=== PATIENT | female | born 2000 | race Two or more races ===

== ENCOUNTER 2023-11-23 06:59 | Emergency (ER) | payer OTHER ==
[~2023-11-23] VITALS: Ht 167.6 cm; Wt 96.6 kg
[2023-11-23 07:41] VITALS: BP 128/88; RESP 18; O2SAT 95
[2023-11-23] MEDS ORDERED: cefTRIAXone SOD 1,000 MG VL IM ONE (08:00)
[2023-11-23] MEDS ORDERED: IBUP-1454 PO (08:04)
[2023-11-23] MEDS ORDERED: CEPH500C PO (08:04)
[2023-11-23] MEDS ORDERED: ACETAMINOPHEN 500 MG TAB PO ONE (08:15)
[2023-11-23] MEDS ORDERED: PROM1SOL4 PO (08:18)
[2023-11-23 08:29] VITALS: PULSE 100; TEMP 99.8
== END 2023-11-23 08:30 | disposition home or self-care (01) ==
LOC: ER 06:59
DX: J03.90 Acute tonsillitis, unspecified (principal)
CPT/HCPCS: 71045; 96372; 99283; J0696

== ENCOUNTER 2024-11-22 20:53 | Emergency (ER) | payer OTHER ==
[~2024-11-22] VITALS: Ht 167.6 cm; Wt 106.5 kg
[~2024-11-22 20:53] MED LIST: CEPH500C PO; IBUP-1454 PO; PROM1SOL4 PO
--- NOTE | 2024-11-22 21:13 | ED.PDOC ---
History of Present Illness HPI Comments 24-year-old female came to ER for pelvic pain. Patient states for the past 3 days she has been having intermittent episodes of aching suprapubic/lower abdominal/pelvic pain. Denies any nausea or vomiting. Denies any vaginal bleeding. Or discharge. Denies any urinary symptoms. Chief Complaint: Pelvic pain Time Seen by MD: 21:13 Primary Care Provider: NONE Reviewed Notes: Nurses Notes Allergies: Coded Allergies: NO KNOWN ALLERGIES (Unverified , 11/23/23) Home Meds Active Scripts Promethazine-Dm (Promethazine Dm 6.25-15 mg/5Ml) 1 Maeve Maeve, 5 ML PO TID, #150 ML Prov:JOSE MANUEL JOEL 11/23/23 Ibuprofen (Ibuprofen) 600 Mg Tab, 1 TAB PO QID, #30 TAB Prov:JOSE MANUEL JOEL 11/23/23 Cephalexin Monohydrate (Cephalexin) 500 Mg Cap, 2 CAP PO QID, #28 CAP Prov:JOSE MANUEL JOEL 11/23/23 Information Source: Patient Mode of Arrival: Ambulatory Severity: Moderate Timing: Days Duration: Intermittent Prehospital treatment: None Past Medical History PAST MEDICAL HISTORY: Denies Surgical History: Denies all surgeries BEHAVIOR INTERVENTIONIST History: No Pertinent BEHAVIOR INTERVENTIONIST History Family History Family History: Reviewed,noncontributory to illness Social History Smoker: Non-Smoker Alcohol: Denies ETOH Use Drugs: Denies Drug Use Lives In: Home Constitutional: denies: chills, diaphoresis, fatigue, fever, malaise, sweats, weakness, others EENTM: denies: blurred vision, double vision, ear bleeding, ear discharge, ear drainage, ear pain, ear ringing, eye pain, eye redness, hearing loss, mouth pain, mouth swelling, nasal discharge, nose bleeding, nose congestion, nose pain, photophobia, tearing, throat pain, throat swelling, voice changes, others Respiratory: denies: cough, hemoptysis, orthopnea, SOB at rest, shortness of breath, SOB with excertion, stridor, wheezing, others Cardiovascular: denies: chest pain, dizzy spells, diaphoresis, Dyspnea on exertion, edema, irregular heart beat, left arm pain, lightheadedness, palpitations, PND, syncope, others Gastrointestinal: denies: abdomen distended, abdominal pain, blood streaked bowels, constipated, diarrhea, dysphagia, difficulty swallowing, hematemesis, melena, nausea, poor appetite, poor fluid intake, rectal bleeding, rectal pain, vomiting, others Genitourinary: reports: pain (Pelvic); denies: abnormal vagina bleeding, burning, dyspareunia, dysuria, flank pain, frequency, hematuria, incontinence, , vagina discharge, urgency, others Neurological: denies: dizziness, fainting, headache, left sided numbness, left sided weakness, numbness, paresthesia, pre-existing deficit, right sided numbness, right sided weakness, seizure, speech problems, tingling, tremors, weakness, others Musculoskeletal: denies: back pain, gout, joint pain, joint swelling, muscle pain, muscle stiffness, neck pain, others Integumetry: denies: bruises, change in color, change in hair/nails, dryness, laceration, lesions, lumps, rash, wounds, others Allergic/Immunocompromised: denies: Difficulty Healing, Frequent Infections, Hives, Itching, others Hematologic/Lymphatic: denies: anemia, blood clots, easy bleeding, easy bruising, swollen glands, others Endocrine: denies: excessive hunger, excessive sweating, excessive thirst, excessive urination, flushing, intolerance to cold, intolerance to heat, unexplained weight gain, unexplained weight loss, others Psychiatric: denies: anxiety, bipolar disorder, depression, hopeless, panic disorder, schizophrenia, sleepless, suicidal, others Physical Exam General Appearance: Moderate Distress (Moderate distress due to pelvic pain. Patient declined any pain medication while at the facility.), Obese HEENT: Normal ENT Inspection, Pharynx Normal, TMs Normal Neck: Full Range of Motion, Non-Tender, Normal, Normal Inspection Respiratory: Chest Non-Tender, Lungs Clear, No Accessory Muscle Use, No Respiratory Distress, Normal Breath Sounds Cardiovascular: No Edema, No JVD, No Murmur, No Gallop, Normal Peripheral Pulses, Regular Rate/Rhythm Breast Exam: Deferred Gastrointestinal: No Organomegaly, Non Tender, No Pulsatile Mass, Normal Bowel Sounds, Soft Genitalia: Deferred Pelvic: Deferred Rectal: Deferred Extremities: No calf tenderness, Normal capillary refill, Normal inspection, Normal range of motion, Non-tender, No pedal edema Musculoskeletal : Apperance: Normal Neurologic: Alert, No Motor Deficits, Normal Affect, Normal Mood, No Sensory Deficits Cerebellar Function: Normal Reflexes: Normal Skin: Dry, Normal Color, Warm Lymphatic: No Adenopathy Was a procedure done? Was a procedure done?: No Differential Dx Considerations may include: Urinary tract infection, ovarian cyst, fibroids, kidney stones X-Ray, Labs, Meds, VS Vital Signs Date Time Temp Pulse Resp B/P (MAP) Pulse Ox O2 Delivery O2 Flow Rate FiO2 11/22/24 21:11 98.4 94 18 147/101 (116) 96 Lab Test 11/22/24 21:24 11/22/24 00:00 Range/Units White Blood Count 9.2 4.4-10.8 10^3/uL Red Blood Count 4.73 4.0-5.20 10^6/uL Hemoglobin 15.0 12.2-16.2 g/dL Hematocrit 43.6 36.0-46.0 % Mean Corpuscular Volume 92.1 80.0-100.0 fL Mean Corpuscular Hemoglobin 31.7 28.0-32.0 pg Mean Corpuscular Hemoglobin Concent 34.4 32.0-36.0 g/dL Red Cell Distribution Width 13.5 11.8-14.3 % Platelet Count 277 140-450 10^3/uL Mean Platelet Volume 9.1 6.9-10.8 fL Neutrophils (%) (Auto) 60.6 37.0-80.0 % Lymphocytes (%) (Auto) 26.4 10.0-50.0 % Monocytes (%) (Auto) 10.1 0.0-12.0 % Eosinophils (%) (Auto) 1.7 0.0-7.0 % Basophils (%) (Auto) 1.2 0.0-2.0 % Neutrophils # (Auto) 5.6 1.6-8.6 10 ^3/uL Lymphocytes # (Auto) 2.4 0.4-5.4 10 ^3/uL Monocytes # (Auto) 0.9 0-1.3 10 ^3/uL Eosinophils # (Auto) 0.2 0-0.8 10 ^3/uL Basophils # (Auto) 0.1 0-0.2 10 ^3/uL Nucleated Red Blood Cells 0.1 % Sodium Level 140 136-145 mmol/L Potassium Level 4.0 3.5-5.1 mmol/L Chloride Level 106 98-107 mmol/L Carbon Dioxide Level 26 20-31 mmol/L Anion Gap 8 5-15 Blood Urea Nitrogen 7 L 9-23 mg/dL Creatinine 1.04 H 0.550-1.02 mg/dL Glomerular Filtration Rate Calc 77 >90 mL/min BUN/Creatinine Ratio 6.7 L 10.0-20.0 Serum Glucose 105 74-106 mg/dL Calcium Level 9.7 8.7-10.4 mg/dL Urine Color Light-orange Yellow Urine Clarity Turbid H Clear Urine pH 6.5 5.0-9.0 Urine Specific Andrew 1.024 1.001-1.035 Urine Protein 2+ H Negative Urine Ketones Trace Negative Urine Blood 3+ H Negative /uL Urine Nitrite Negative Negative Urine Bilirubin Negative Negative Urine Urobilinogen 6 Negative mg/dL Urine Leukocyte Esterase 2+ Negative /uL Urine RBC 907 0 - 4 /hpf Urine WBC 27 0 - 5 /hpf Urine Squamous Epithelial Cells Mod <5 /hpf Urine Bacteria None seen None Seen /hpf Urine Mucus Few None Seen Urine Glucose Normal Normal mg/dL Urine Test Negative Negative INDICATION: Diffuse bilateral pelvic pain TECHNIQUE: Multiple real-time grayscale transabdominal sonographic images along with color and duplex Doppler of the uterus and ovaries were obtained. COMPARISON: None FINDINGS: The uterus measures 0.8 x 5.2 x 4.8 cm. The endometrial stripe measures 1.1 cm. Right ovary measures 2.6 x 2.2 x 1.9 cm with normal Doppler color flow Left ovary measures 3.8 x 2.5 x 3.0 cm with normal Doppler color flow IMPRESSION: No sonographic evidence of acute pelvic abnormalities. Thickened endometrium within normal limits for patient's age. X-Ray, Labs, Meds, VS Comment Psych or the ED were evaluated by me personally. Patient's serum laboratories were unremarkable but her urinalysis was positive for a urinary tract infection. Ultrasound of the pelvis was unremarkable for any acute findings. Patient was given 1st dose of antibiotics prior to discharge. Advised patient utilize antibiotics as directed until completion as well as pain medication as needed. Good hydration throughout. Time of 1ST Reevaluation: 00:12 Reevaluation 1ST: Improved Consultation: PCP Patient Education/Counseling: Diagnosis, Treatment Family Education/Counseling: Diagnosis, Treatment, No Family Present Departure 1 Departure Time of Disposition: 00:12 Impression: Primary Impression: Urinary tract infection Disposition: HOME / SELF CARE / HOMELESS Condition: Stable Additional Instructions: Advised patient utilize antibiotics as directed until completion as well as pain medication as needed. Good hydration and healthy nutrition throughout. e-Prescriptions Ibuprofen Micronized (Ibuprofen) 800 Mg Tab 800 MG PO Q8HP PRN, #30 TAB Prov: MIRIAM FERRARA PAC 11/23/24 Nitrofurantoin Monohydrate Mac (Macrobid) 100 Mg Cap 100 MG PO BID for 7 Days, #14 CAP Prov: MIRIAM FERRARA PAC 11/23/24 Discharged With: Self, Relative Critical Care Note Critical Care Time?: No Stability Stability form required: No Heart Score Heart Score: Heart Score Response (Comments) Value History N/A 0 EKG N/A 0 Age N/A 0 Risk Factors N/A 0 Troponin N/A 0 Total 0 I personally scribed for MIRIAM FERRARA PAC ([email or web address]) on 11/22/24 at 21:13. Electronically submitted by [employer]x Finnegan ([email or web address]). I personally scribed for MIRIAM FERRARA PAC ([email or web address]) on 11/22/24 at 23:55. Electronically submitted by [employer] Finnegan ([email or web address]). MIRIAM FERRARA PAC Nov 22, 2024 21:13
[2024-11-22 21:27] LABS: Urine Bacteria None Seen /hpf (None Seen)
[2024-11-22 21:40] LABS: Basophils # (auto) 0.1 10 ^3/uL (0-0.2); Basophils % (auto) 1.2 % (0.0-2.0); Eosinophils # (auto) 0.2 10 ^3/uL (0-0.8); Eosinophils % (auto) 1.7 % (0.0-7.0); Hematocrit 43.6 % (36.0-46.0); Lymphocytes # (auto) 2.4 10 ^3/uL (0.4-5.4); Lymphocytes % (auto) 26.4 % (10.0-50.0); Mean Corpuscular Hemoglobin 31.7 pg (28.0-32.0); Mean Corpuscular Hgb Conc. 34.4 g/dL (32.0-36.0); Mean Corpuscular Volume 92.1 fL (80.0-100.0); Monocytes # (auto) 0.9 10 ^3/uL (0-1.3); Monocytes % (auto) 10.1 % (0.0-12.0); Neutrophils # (auto) 5.6 10 ^3/uL (1.6-8.6); Neutrophils % (auto) 60.6 % (37.0-80.0); Nucleated Red Blood Cells % 0.1 %; Platelet Count (auto) 277 10^3/uL (140-450); Red Blood Cells 4.73 10^6/uL (4.0-5.20); Red Cell Distribution Width 13.5 % (11.8-14.3); White Blood Cell 9.2 10^3/uL (4.4-10.8)
[2024-11-22 21:54] LABS: Chloride 106 mmol/L (98-107); Sodium 140 mmol/L (136-145)
[2024-11-22 21:55] LABS: Anion Gap 8 (5-15); Calcium 9.7 mg/dL (8.7-10.4); Carbon Dioxide 26 mmol/L (20-31)
[2024-11-22 21:55] LABS: Urine Blood 3+ /uL (Negative); Urine Clarity Turbid (Clear); Urine Color Light-Orange (Yellow); Urine Mucus FEW (None Seen); Urine Protein, UAD 2+ (Negative); Urine Specific Gravity 1.024 (1.001-1.035); Urine Squamous Epithelial Cell MOD /hpf (<5); Urine Urobilinogen 6 mg/dL (Negative); Urine WBC 27 /hpf (0 - 5); Urine pH 6.5 (5.0-9.0)
[2024-11-22 22:00] LABS: BUN/Creatinine Ratio 6.7 (10.0-20.0); Glucose 105 mg/dL (74-106)
[2024-11-22 22:02] LABS: Blood Urea Nitrogen 7 mg/dL (9-23)
--- NOTE | 2024-11-22 22:52 | DVH ---
INDICATION: Diffuse bilateral pelvic pain TECHNIQUE: Multiple real-time grayscale transabdominal sonographic images along with color and duplex Doppler of the uterus and ovaries were obtained. COMPARISON: None FINDINGS: The uterus measures 0.8 x 5.2 x 4.8 cm. The endometrial stripe measures 1.1 cm. Right ovary measures 2.6 x 2.2 x 1.9 cm with normal Doppler color flow Left ovary measures 3.8 x 2.5 x 3.0 cm with normal Doppler color flow IMPRESSION: No sonographic evidence of acute pelvic abnormalities. Thickened endometrium within normal limits for patient's age.
[2024-11-23] MEDS ORDERED: NITR-87 PO (00:14)
[2024-11-23] MEDS ORDERED: IBUP-1455 PO (00:14)
[2024-11-23 00:21] VITALS: BP 127/86; PULSE 86; RESP 16; TEMP 98.3; O2SAT 97
[2024-11-23] MEDS: NITROFURANTOIN 100 mg CAP PO ONE (00:35)
== END 2024-11-23 00:40 | disposition home or self-care (01) ==
LOC: ER 20:53
DX: N39.0 Urinary tract infection, site not specified (principal); Z79.899 Other long term (current) drug therapy
CPT/HCPCS: 36415; 76856; 80048; 81001; 81025; 85025